=== PATIENT | female | born 1950 | race Hispanic/Latino ===

== ENCOUNTER → 2023-01-03 | Outpatient (CLI) | payer MEDICARE ==
[2023-01-03 10:41] LABS: CREATININE 1.8 mg/dL (0.5-1.5)
== END | disposition home or self-care (01) ==
LOC: LAB 09:19
PROVIDERS: ATTEND Internal Medicine Gastroenterology
DX: R10.11 Right upper quadrant pain (principal)
CPT/HCPCS: 36415; 82565; 84520

== ENCOUNTER → 2023-01-07 | Outpatient (CLI) | payer MEDICARE | END | disposition home or self-care (01) | LOC: RAH 09:44 | PROVIDERS: ATTEND Internal Medicine Gastroenterology | DX: R10.11 Right upper quadrant pain (principal) | CPT/HCPCS: 74150 ==

== ENCOUNTER 2023-11-21 13:24 | Emergency (ER) | payer MEDICARE ==
[~2023-11-21] VITALS: Ht 160 cm; Wt 92.1 kg
[2023-11-21] MEDS: dexaMETHasone SOD PHOSPHATE 4 MG/ML 1ML VIAL IM ONE (14:15)
[2023-11-21] MEDS: acetaMINOPHEN WITH coDEINE 1 TAB TAB PO ONE (14:17)
[2023-11-21] MEDS: CYCLOBENZAPRINE HCL 10 MG TABLET PO ONE (14:18)
[2023-11-21 14:32] VITALS: BP 141/61; PULSE 69; RESP 16; TEMP 97.6; O2SAT 98
[2023-11-21] MEDS ORDERED: ACET-2079 PO (15:21)
== END 2023-11-21 16:08 | disposition home or self-care (01) ==
LOC: EDH 13:24
DX: M47.812 Spondylosis without myelopathy or radiculopathy, cervical region (principal); E11.22 Type 2 diabetes mellitus with diabetic chronic kidney disease; I12.9 Hypertensive chronic kidney disease with stage 1 through stage 4 chronic kidney disease, or unspecified chronic kidney disease; N18.9 Chronic kidney disease, unspecified; E78.00 Pure hypercholesterolemia, unspecified; Z90.49 Acquired absence of other specified parts of digestive tract; Z98.890 Other specified postprocedural states
CPT/HCPCS: 99283; 72040; 96372; J1100